=== PATIENT | female | born 1965 | race Caucasian/White ===

== ENCOUNTER 2016-08-26 21:32 | Emergency (ER) | payer SELFPAY ==
[~2016-08-26] VITALS: Ht 162.6 cm; Wt 128.3 kg
[~2016-08-26 21:32] MED LIST: PERCOCET 5/31 TABLET PO
[2016-08-26 22:01] LABS: HEMATOCRIT 38.7 % (36.0-46.0); MCH 24.2 PG (29.0-34.0); MCHC 30.7 G/DL (30.0-36.0); MCV 78.8 FL (83-99); MEAN PLAT.VOLUME 11.7 uM^3 (9.5-12.4); PLATELET COUNT 209 K/uL (156-360); RBC DIS.WIDTH-CV 15.1 % (11.8-14.6); RBC DIS.WIDTH-SD 42.4 % (39-53); RED BLOOD COUNT 4.91 M/uL (3.80-5.20); WHITE BLOOD COUNT 7.1 K/uL (4.1-10.2)
[2016-08-26 22:17] LABS: CHLORIDE 104 mEq/L (99-109); POTASSIUM 3.8 mEq/L (3.7-5.4); SODIUM 139 mEq/L (136-147)
[2016-08-26 22:20] LABS: GLUCOSE 135 mg/dL (70-99)
[2016-08-26 22:21] LABS: ANION GAP 12 MEQ/L (2-14); TOTAL BILIRUBIN 0.3 mg/dL (0.0-1.0)
[2016-08-26 22:23] LABS: ALKALINE PHOSPHATASE 102 IU/L (3-129); GFR ESTIMATE (CALCULATED) > 59 mL/min/
[2016-08-26 22:24] LABS: UREA NITROGEN (BUN) 16 mg/dL (9-23)
[2016-08-26 22:34] LABS: QUANTITATIVE HCG < 4.0 MIU/ML
[2016-08-27 00:15] LABS: ADD MIUA? YES; BILIRUBIN NEGATIVE; BLOOD LARGE; COLOR YELLOW ((YELLOW)); GLUCOSE (STRIP) NEGATIVE; KETONES NEGATIVE; LEUKOCYTES SMALL; NITRITE NEGATIVE; PH, URINE 5.5 (5-8); PROTEIN (STRIP) 30; SPECIFIC GRAVITY 1.028 (1.000-1.030); UROBILINOGEN 0.2 MG/DL (0.2-1.0)
[2016-08-27 00:35] LABS: BACTERIA 1+; CASTS NONE SEEN /LPF; CRYSTALS PRESENT; EPITHELIAL CELLS RARE; MUCUS RARE; RED BLOOD CELLS TNTC /HPF (0-5); UCUL ADDED? NO; WHITE BLOOD CELLS 0-5 /HPF (0-5)
[2016-08-27 00:36] LABS: CALCIUM OXALATE CRYSTALS RARE
[2016-08-27] MEDS ORDERED: ZOFRAN ODT4 MG PO (01:22)
[2016-08-27] MEDS ORDERED: PERCOCET 5/31 TABLET PO (01:22)
[2016-08-27 01:47] VITALS: BP 128/68
[2016-08-27] MEDS ORDERED: METFORMIN HCL500 MG PO (23:06)
[2016-08-27] MEDS ORDERED: METOPROLOL TART50 MG PO (23:07)
[2016-08-27] MEDS ORDERED: NEXIUM 24HR20 MG PO (23:08)
[2016-08-27] MEDS ORDERED: HYDROCHLOROTHIA25 MG PO (23:08)
[2016-08-27] MEDS ORDERED: METOPROLOL TART25 MG PO (23:08)
[2016-08-27] MEDS ORDERED: LISINOPRIL5 MG PO (23:09)
[2016-08-27] MEDS ORDERED: CRESTOR10 MG PO (23:09)
[2016-08-27] MEDS ORDERED: CELEBREX200 MG PO (23:09)
== END 2016-08-27 01:48 | disposition home or self-care (01) ==
LOC: RME 21:32 → EME 21:32 → RME 08-27 01:48
DX: N20.1 Calculus of ureter (principal)
CPT/HCPCS: 74176; 80053; 81003; 84702; 85027; 99281; 99284

== ENCOUNTER 2016-08-27 16:00 | Observation (INO) | payer SELFPAY ==
[~2016-08-27] VITALS: Ht 162.6 cm; Wt 125.3 kg
[~2016-08-27 16:00] MED LIST changes: +ZOFRAN ODT4 MG PO
[2016-08-27 19:41] LABS: HEMATOCRIT 41.6 % (36.0-46.0); MCH 24.5 PG (29.0-34.0); MCV 78.9 FL (83-99); MEAN PLAT.VOLUME 11.7 uM^3 (9.5-12.4); PLATELET COUNT 234 K/uL (156-360); RBC DIS.WIDTH-CV 15.1 % (11.8-14.6); RBC DIS.WIDTH-SD 42.9 % (39-53); RED BLOOD COUNT 5.27 M/uL (3.80-5.20)
[2016-08-27 19:43] LABS: ADD MIUA? YES; BILIRUBIN NEGATIVE; BLOOD LARGE; COLOR YELLOW ((YELLOW)); GLUCOSE (STRIP) NEGATIVE; KETONES NEGATIVE; LEUKOCYTES SMALL; NITRITE NEGATIVE; PH, URINE 5.5 (5-8); PROTEIN (STRIP) 30; UROBILINOGEN 0.2 MG/DL (0.2-1.0)
[2016-08-27 19:49] LABS: CHLORIDE 104 mEq/L (99-109); POTASSIUM 4.1 mEq/L (3.7-5.4); SODIUM 141 mEq/L (136-147)
[2016-08-27 19:51] LABS: GLUCOSE 128 mg/dL (70-99)
[2016-08-27 19:52] LABS: ANION GAP 11 MEQ/L (2-14)
[2016-08-27 19:55] LABS: GFR ESTIMATE (CALCULATED) > 59 mL/min/
[2016-08-27 19:56] LABS: UREA NITROGEN (BUN) 16 mg/dL (9-23)
[2016-08-27 20:01] LABS: RED BLOOD CELLS 20-30 /HPF (0-5)
[2016-08-27 20:04] LABS: CASTS NONE SEEN /LPF; CRYSTALS NONE SEEN; EPITHELIAL CELLS 1+; MUCUS NONE SEEN
[2016-08-27 20:05] LABS: BACTERIA 2+; UCUL ADDED? YES
[2016-08-27] MEDS ORDERED: METFORMIN HCL500 MG PO (23:06)
[2016-08-27] MEDS ORDERED: METOPROLOL TART50 MG PO (23:07)
[2016-08-27] MEDS ORDERED: METOPROLOL TART25 MG PO (23:08)
[2016-08-27] MEDS ORDERED: NEXIUM 24HR20 MG PO (23:08)
[2016-08-27] MEDS ORDERED: HYDROCHLOROTHIA25 MG PO (23:08)
[2016-08-27] MEDS ORDERED: LISINOPRIL5 MG PO (23:09)
[2016-08-27] MEDS ORDERED: CELEBREX200 MG PO (23:09)
[2016-08-27] MEDS ORDERED: CRESTOR10 MG PO (23:09)
[2016-08-28 02:34] VITALS: BP 135/69
[2016-08-28 05:53] VITALS: BP 124/68
[2016-08-28 08:00] VITALS: BP 122/87
[2016-08-28 10:44] VITALS: BP 106/53
[2016-08-28 16:10] VITALS: BP 118/70
[2016-08-28 21:17] VITALS: BP 121/72
[2016-08-29 00:33] VITALS: BP 103/56
[2016-08-29 05:02] VITALS: BP 111/80
[2016-08-29 07:07] LABS: EOSINOPHIL (%) 0.2 % (0-5); HEMATOCRIT 34.1 % (36.0-46.0); IMMATURE GRANULOCYTE (%) 0.2 % (0.0-0.7); LYMPHOCYTE COUNT 1.4 K/uL (1.0-2.8); MCH 23.8 PG (29.0-34.0); MEAN PLAT.VOLUME 11.6 uM^3 (9.5-12.4); MONOCYTE (%) 7.2 % (3-12); MONOCYTE COUNT 0.5 K/uL (0-0.8); NEUTROPHIL COUNT 4.7 K/uL (1.8-6.4); PLATELET COUNT 175 K/uL (156-360); RBC DIS.WIDTH-CV 15.4 % (11.8-14.6); RBC DIS.WIDTH-SD 45.4 % (39-53); RED BLOOD COUNT 4.16 M/uL (3.80-5.20); WHITE BLOOD COUNT 6.6 K/uL (4.1-10.2)
[2016-08-29 07:16] LABS: ANION GAP 5 MEQ/L (2-14); CHLORIDE 106 MEQ/L (99-109); GFR ESTIMATE (CALCULATED) > 59 mL/min/; GLUCOSE 105 mg/dL (70-99); POTASSIUM 4.1 MEQ/L (3.7-5.4); SAMPLE HEMOLYSIS CHECK 0; SAMPLE ICTERIC CHECK 0; SAMPLE LIPEMIA CHECK 0; SODIUM 140 MEQ/L (136-147); UREA NITROGEN (BUN) 13 mg/dL (9-23)
[2016-08-29 08:00] VITALS: BP 125/73
[2016-08-29] MEDS ORDERED: TAMSULOSIN HCL0.4 MG PO (10:58)
== END 2016-08-29 12:09 | disposition home or self-care (01) ==
LOC: EME 16:00 → EDOF 08-28 00:38 → 5WEST 08-28 02:20
PROVIDERS: Hospitalist
DX: N20.1 Calculus of ureter (principal); N10 Acute pyelonephritis; E66.01 Morbid (severe) obesity due to excess calories; Z68.42 Body mass index [BMI] 45.0-49.9, adult; I10 Essential (primary) hypertension; D13.4 Benign neoplasm of liver; Z82.49 Family history of ischemic heart disease and other diseases of the circulatory system; Z83.3 Family history of diabetes mellitus
CPT/HCPCS: 74000; 76000; 80048; 81003; 85025; 85027; 87086; 94760; 94799; 99281; 99285; C1876; G0378; J0696; J1100; J1170; J1644; J2405; J3010; J7030; J7050; S0028

== ENCOUNTER 2018-01-05 12:10 | Inpatient (IN) | payer SELFPAY ==
[~2018-01-05] VITALS: Ht 162.6 cm; Wt 129.5 kg
[~2018-01-05 12:10] MED LIST changes: +CELEBREX200 MG PO; +CRESTOR10 MG PO; +HYDROCHLOROTHIA25 MG PO; +LISINOPRIL5 MG PO; +METFORMIN HCL500 MG PO; +METOPROLOL TART25 MG PO; +METOPROLOL TART50 MG PO; +NEXIUM 24HR20 MG PO; +TAMSULOSIN HCL0.4 MG PO
[2018-01-05 14:01] LABS: HEMATOCRIT 41.1 % (36.0-46.0); HEMOGLOBIN 12.8 G/DL (11.9-15.5); MCH 24.9 PG (29.0-34.0); MCHC 31.1 G/DL (30.0-36.0); MCV 79.8 FL (83-99); PLATELET COUNT 238 K/uL (156-360); RBC DIS.WIDTH-CV 14.3 % (11.8-14.6); RBC DIS.WIDTH-SD 41.3 % (39-53); RED BLOOD COUNT 5.15 M/uL (3.80-5.20)
[2018-01-05 14:09] LABS: CHLORIDE 104 mEq/L (99-109); POTASSIUM 4.4 mEq/L (3.7-5.4); SODIUM 139 mEq/L (136-147)
[2018-01-05 14:11] LABS: GLUCOSE 129 mg/dL (70-99)
[2018-01-05 14:15] LABS: CREATININE 1.1 mg/dL (0.6-1.3); GFR ESTIMATE (CALCULATED) 55 mL/min/
[2018-01-05 14:16] LABS: UREA NITROGEN (BUN) 19 mg/dL (9-23)
[2018-01-05 16:16] LABS: APPEARANCE SL.HAZY ((CLEAR)); BILIRUBIN NEGATIVE; BLOOD MODERATE; COLOR YELLOW ((YELLOW)); GLUCOSE (STRIP) NEGATIVE; KETONES NEGATIVE; LEUKOCYTES LARGE; NITRITE NEGATIVE; PROTEIN (STRIP) NEGATIVE; SPECIFIC GRAVITY 1.011 (1.000-1.030); UROBILINOGEN 0.2 MG/DL (0.2-1.0)
[2018-01-05 16:28] LABS: BACTERIA RARE /HPF; EPITHELIAL CELLS 1+ /HPF; MUCUS TRACE /LPF; UCUL ADDED? YES; WHITE BLOOD CELLS TNTC /HPF (0-5)
[2018-01-05 22:22] VITALS: BP 151/69
[2018-01-06 06:00] LABS: BASOPHIL (%) 0.2 % (0-1); EOSINOPHIL (%) 0 % (0-5); HEMATOCRIT 34.6 % (36.0-46.0); IMMATURE GRANULOCYTE (%) 0.4 % (0.0-0.7); LYMPHOCYTE (%) 11.3 % (15-42); LYMPHOCYTE COUNT 1.1 K/uL (1.0-2.8); MCH 24.8 PG (29.0-34.0); MCHC 30.6 G/DL (30.0-36.0); MONOCYTE (%) 5.4 % (3-12); MONOCYTE COUNT 0.5 K/uL (0-0.8); NEUTROPHIL (%) 82.7 % (45-76); PLATELET COUNT 179 K/uL (156-360); RBC DIS.WIDTH-CV 14.6 % (11.8-14.6); RBC DIS.WIDTH-SD 42.6 % (39-53); RED BLOOD COUNT 4.27 M/uL (3.80-5.20); WHITE BLOOD COUNT 9.7 K/uL (4.1-10.2)
[2018-01-06 06:04] LABS: HEMOGLOBIN 10.6 G/DL (11.9-15.5)
[2018-01-06 06:20] LABS: CHLORIDE 108 MEQ/L (99-109); CREATININE 1.1 MG/DL (0.6-1.3); GFR ESTIMATE (CALCULATED) 55 mL/min/; GLUCOSE 129 mg/dL (70-99); POTASSIUM 4.1 MEQ/L (3.7-5.4); SODIUM 138 MEQ/L (136-147); UREA NITROGEN (BUN) 16 mg/dL (9-23)
[2018-01-06 07:30] VITALS: BP 155/82
[2018-01-06 11:42] VITALS: BP 176/79
[2018-01-06 15:30] VITALS: BP 155/95
[2018-01-06 20:51] VITALS: BP 134/84
[2018-01-06 23:46] VITALS: BP 137/83
[2018-01-07 03:42] VITALS: BP 140/87
[2018-01-07 06:36] LABS: BASOPHIL (%) 0.2 % (0-1); EOSINOPHIL (%) 0.2 % (0-5); HEMATOCRIT 33.8 % (36.0-46.0); HEMOGLOBIN 10.2 G/DL (11.9-15.5); IMMATURE GRANULOCYTE (%) 0.3 % (0.0-0.7); LYMPHOCYTE (%) 10.4 % (15-42); MCH 24.6 PG (29.0-34.0); MCHC 30.2 G/DL (30.0-36.0); MCV 81.4 FL (83-99); MONOCYTE COUNT 0.7 K/uL (0-0.8); NEUTROPHIL (%) 81.9 % (45-76); NEUTROPHIL COUNT 7.6 K/uL (1.8-6.4); PLATELET COUNT 167 K/uL (156-360); RBC DIS.WIDTH-CV 14.6 % (11.8-14.6); RBC DIS.WIDTH-SD 42.9 % (39-53); RED BLOOD COUNT 4.15 M/uL (3.80-5.20); WHITE BLOOD COUNT 9.2 K/uL (4.1-10.2)
[2018-01-07 07:00] VITALS: BP 138/82
[2018-01-07 07:01] LABS: ALBUMIN 2.9 G/DL (3.2-4.8); ALKALINE PHOSPHATASE 72 IU/L (3-129); ALT (GPT) 11 IU/L (3-49); AST (GOT) 13 IU/L (2-34); CHLORIDE 109 MEQ/L (99-109); CREATININE 0.9 MG/DL (0.6-1.3); GFR ESTIMATE (CALCULATED) > 59 mL/min/; GLUCOSE 114 mg/dL (70-99); POTASSIUM 4.2 MEQ/L (3.7-5.4); SODIUM 141 MEQ/L (136-147); TOTAL BILIRUBIN 0.4 MG/DL (0.0-1.0); UREA NITROGEN (BUN) 11 mg/dL (9-23)
[2018-01-07 11:00] VITALS: BP 112/86
[2018-01-07 16:02] VITALS: BP 166/86
[2018-01-07 19:23] VITALS: BP 142/85
[2018-01-07 23:04] VITALS: BP 150/70
[2018-01-08 03:28] VITALS: BP 141/76
[2018-01-08 05:55] LABS: BASOPHIL (%) 0.3 % (0-1); EOSINOPHIL (%) 0.6 % (0-5); HEMATOCRIT 34.9 % (36.0-46.0); HEMOGLOBIN 10.7 G/DL (11.9-15.5); IMMATURE GRANULOCYTE (%) 0.4 % (0.0-0.7); LYMPHOCYTE (%) 15.5 % (15-42); LYMPHOCYTE COUNT 1.1 K/uL (1.0-2.8); MCH 24.5 PG (29.0-34.0); MCHC 30.7 G/DL (30.0-36.0); MONOCYTE (%) 7.3 % (3-12); MONOCYTE COUNT 0.5 K/uL (0-0.8); NEUTROPHIL (%) 75.9 % (45-76); NEUTROPHIL COUNT 5.4 K/uL (1.8-6.4); PLATELET COUNT 186 K/uL (156-360); RBC DIS.WIDTH-CV 14.6 % (11.8-14.6); RBC DIS.WIDTH-SD 42.3 % (39-53); RED BLOOD COUNT 4.36 M/uL (3.80-5.20); WHITE BLOOD COUNT 7.1 K/uL (4.1-10.2)
[2018-01-08 06:23] LABS: ALBUMIN 2.9 G/DL (3.2-4.8); ALKALINE PHOSPHATASE 79 IU/L (3-129); ALT (GPT) 17 IU/L (3-49); AST (GOT) 15 IU/L (2-34); CHLORIDE 105 MEQ/L (99-109); CREATININE 0.7 MG/DL (0.6-1.3); GFR ESTIMATE (CALCULATED) > 59 mL/min/; GLUCOSE 119 mg/dL (70-99); POTASSIUM 3.7 MEQ/L (3.7-5.4); SODIUM 142 MEQ/L (136-147); TOTAL BILIRUBIN 0.4 MG/DL (0.0-1.0); UREA NITROGEN (BUN) 10 mg/dL (9-23)
[2018-01-08 07:00] VITALS: BP 150/90
[2018-01-08] MEDS ORDERED: CIPRO500 MG PO (09:28)
== END 2018-01-08 14:03 | disposition home or self-care (01) | DRG 871 ==
LOC: EME 12:10 → 5EAST 18:33 → EDOF 18:33 → ENRESERV 18:36 → 5EAST 21:47
PROVIDERS: Hospitalist
PROC: BT1D1ZZ Fluoroscopy of Right Kidney, Ureter and Bladder using Low Osmolar Contrast (ICD-10-PCS; principal; 2018-01-05)
PROC: 0T768DZ Dilation of Right Ureter with Intraluminal Device, Via Natural or Artificial Opening Endoscopic (ICD-10-PCS; principal; 2018-01-05)
DX: A41.9 Sepsis, unspecified organism (principal); N10 Acute pyelonephritis; I10 Essential (primary) hypertension; E66.01 Morbid (severe) obesity due to excess calories; Z87.442 Personal history of urinary calculi; E78.5 Hyperlipidemia, unspecified; R73.03 Prediabetes; N28.89 Other specified disorders of kidney and ureter; N13.5 Crossing vessel and stricture of ureter without hydronephrosis; R31.9 Hematuria, unspecified; B96.4 Proteus (mirabilis) (morganii) as the cause of diseases classified elsewhere; J96.01 Acute respiratory failure with hypoxia; Z68.42 Body mass index [BMI] 45.0-49.9, adult
CPT/HCPCS: 71045; 74176; 80048; 80053; 81003; 83605; 85025; 85027; 85379; 87040; 87077; 87086; 87186; 87801; 94010; 94799; 99202; 99281; 99285; C1876; J0131; J0330; J0360; J0696; J1100; J1170; J1650; J1885; J2250; J3010; J7030; J7120

== ENCOUNTER 2018-01-31 08:32 | Day surgery (SDC) | payer SELFPAY ==
[~2018-01-31] VITALS: Ht 162.6 cm; Wt 129.5 kg
[~2018-01-31 08:32] MED LIST changes: +CIPRO500 MG PO; +IRON325 M1 PO; +LOPRESSOR25 MG PO; +VITAMIN D33000 UNIT PO
[2018-01-31 09:38] VITALS: BP 136/94
[2018-01-31 14:49] VITALS: BP 148/87
[2018-01-31 15:29] VITALS: BP 145/87
== END 2018-01-31 15:43 | disposition home or self-care (01) ==
LOC: SDC 08:32
PROVIDERS: Urology
PROC: BT1D1ZZ Fluoroscopy of Right Kidney, Ureter and Bladder using Low Osmolar Contrast (ICD-10-PCS; principal; 2018-01-31)
PROC: 0TP98DZ Removal of Intraluminal Device from Ureter, Via Natural or Artificial Opening Endoscopic (ICD-10-PCS; principal; 2018-01-31)
PROC: 0TF68ZZ Fragmentation in Right Ureter, Via Natural or Artificial Opening Endoscopic (ICD-10-PCS; principal; 2018-01-31)
PROC: 0TF38ZZ Fragmentation in Right Kidney Pelvis, Via Natural or Artificial Opening Endoscopic (ICD-10-PCS; principal; 2018-01-31)
PROC: 0T768DZ Dilation of Right Ureter with Intraluminal Device, Via Natural or Artificial Opening Endoscopic (ICD-10-PCS; principal; 2018-01-31)
DX: N20.2 Calculus of kidney with calculus of ureter (principal); E78.5 Hyperlipidemia, unspecified; I10 Essential (primary) hypertension; M19.90 Unspecified osteoarthritis, unspecified site; E11.9 Type 2 diabetes mellitus without complications; Z87.442 Personal history of urinary calculi
CPT/HCPCS: 74420; 82948; 85379; 93005; C1894; C2625; J0131; J0330; J0696; J1885; J2405; J3010

== ENCOUNTER → 2018-03-01 | Outpatient (CLI) | payer SELFPAY | END | disposition home or self-care (01) | LOC: RAD 16:26 | DX: R91.8 Other nonspecific abnormal finding of lung field (principal) | CPT/HCPCS: 71046 ==

== ENCOUNTER → 2018-03-20 | Outpatient (CLI) | payer SELFPAY | END | disposition home or self-care (01) | LOC: RAD 13:57 | DX: M79.89 Other specified soft tissue disorders (principal) | CPT/HCPCS: 93970 ==